=== PATIENT | female | born 1970 | race Caucasian/White ===

== ENCOUNTER 2017-09-19 12:22 | Outpatient (CLI) | payer OTHER ==
[2017-09-19 13:04] LABS: HB2 TOTAL 16.4 g/dL; HEMOGLOBIN A1C 0.54 g/dL; HEMOGLOBIN A1C % 5.2 % (4.6-6.2)
[2017-09-19 13:09] LABS: CHOL/HDL RATIO 3.5 (<4.4); CHOLESTEROL 242 mg/dL; GLUCOSE 98 mg/dL (70-100); HDL CHOLESTEROL 69 mg/dL; LDL CHOLESTEROL,CALCULATED 159 mg/dL; LDL/HDL RATIO 2.3 (<4.4); VLDL CHOLESTEROL 14 mg/dL
[2017-09-19 13:11] LABS: T4 (THYROXINE) 10.48 ug/dL (6.09-12.23)
[2017-09-19 13:14] LABS: THYROID STIMULATING HORMONE 2.85 uIU/mL (0.34-5.60)
[2017-09-19 13:16] LABS: FREE T4 (FREE THYROXINE) 0.96 ng/dL (0.58-1.64)
[2017-09-19 13:20] LABS: FERRITIN 74.1 ng/mL (11.0-306.8)
== END 2017-09-19 12:23 | disposition home or self-care (01) ==
LOC: LAB 12:22
PROVIDERS: ATTEND Internal Medicine Endocrinology, Diabetes & Metabolism
DX: E03.8 Other specified hypothyroidism (principal); E55.9 Vitamin D deficiency, unspecified
CPT/HCPCS: 36415; 80061; 82306; 82728; 82947; 83036; 83721; 84436; 84439; 84443; 84481

== ENCOUNTER 2019-07-16 17:10 | Outpatient (CLI) | payer BC | END 2019-07-16 17:11 | disposition home or self-care (01) | LOC: COV 17:10 | PROVIDERS: ATTEND Family Medicine | DX: R05 Cough (principal); R50.9 Fever, unspecified ==

== ENCOUNTER 2020-04-26 15:18 | Outpatient (CLI) | payer BC ==
[2020-04-26 16:39] LABS: FERRITIN 133.3 ng/mL (11.0-306.8)
[2020-04-26 20:29] LABS: HEMOGLOBIN A1c% 5.5 % (4.27-6.07)
[2020-04-26 22:27] LABS: FREE T4 (FREE THYROXINE) 1.35 ng/dL (0.58-1.64)
== END 2020-04-26 15:19 | disposition home or self-care (01) ==
LOC: LAB 15:18
PROVIDERS: ATTEND Internal Medicine Endocrinology, Diabetes & Metabolism
DX: E03.8 Other specified hypothyroidism (principal)
CPT/HCPCS: 36415; 82306; 82728; 83036; 84439; 84443